=== PATIENT | male | born 1950 ===

== ENCOUNTER 2019-03-01 08:29 | Day surgery (SDC) | payer MEDICARE ==
[2019-03-01 08:47] VITALS: BMI 26.6
[2019-03-01] MEDS ORDERED: Propofol 10 mg/ml Inj (20 ML) ONE (09:26)
[2019-03-01 10:10] VITALS: O2SAT 100
[2019-03-01 10:22] VITALS: RESP 18
[2019-03-01 10:41] VITALS: BP 132/84; PULSE 59; TEMP 96.9
== END 2019-03-01 10:51 | disposition home or self-care (01) ==
LOC: H.ENDO 08:29
PROVIDERS: ATTEND Internal Medicine Gastroenterology
DX: Z12.11 Encounter for screening for malignant neoplasm of colon (principal); E11.9 Type 2 diabetes mellitus without complications; K64.8 Other hemorrhoids; K57.30 Diverticulosis of large intestine without perforation or abscess without bleeding
CPT/HCPCS: 45378; J2001; J2704